=== PATIENT | male | born 1950 | race American Indian/Alaskan Native ===

== ENCOUNTER 2018-05-19 07:05 | Inpatient (IN) | payer MEDICARE ==
--- NOTE | 2018-05-14 15:05 | NUR ---
PATIENT HERE FOR PREADMISSION APPOINTMENT. HE IS SCHEDULED TO HAVE A LEFT TOTAL KNEE ARTHROPLASTY ON 05/19/18. HE HAS ATTENDED THE [facility] [employer] AND WOULD LIKE PHYSICAL THERAPY SET UP WITH [facility]. HIS DAUGHTER MAMI WILL BE HERE TO TRANSPORT HIM HOME WHEN HE IS DISCHARGED. HE HAS 6 STEPS INTO THE HOME AND NO STEPS INSIDE THE HOME. HE HAS A WALK IN SHOWER AND WILL LOOK INTO GETTING A SHOWER BENCH. HE HAS OBTAINED A WALKER AFTER ATTENDING THE [employer] CLASS. THIS INFORMATION WILL BE SENT TO DR WATSON AND CASE MANAGEMENT FOR FURTHER FOLLOW UP.
[~2018-05-19] VITALS: Ht 177.8 cm; Wt 69.0 kg
[~2018-05-19 07:05] MED LIST: ADVAIR 100-501 EACH INH; DEXAMETHASONE4 MG PO; HYDROCHLOROTHIA25 MG PO; OXYCODONE-ACET1 EAC1 PO; ULTRAM50 MG PO
[2018-05-19] MEDS ORDERED: ALEVE220 MG PO (07:25)
--- NOTE | 2018-05-19 07:38 | NUR ---
CHG NASAL SWAB AND ORAL RINSE COMPLETE.
--- NOTE | 2018-05-19 07:52 | NUR ---
PATIENT IS TAKEN BY WHEELCHAIR TO IMAGING FOR KNEE XRAYS BY ALLAN Walter. PATIENT RETURNS AND CALL LIGHT IS W/IN REACH. WARM BLANKETS GIVEN.
--- NOTE | 2018-05-19 12:28 | NUR ---
05/19/18 1228 Yary Hansen 1014- PT ARRIVES TO PACU NONAROUSABLE TO NOXIOUS STIMULI. PT HAS AN OPA IN PLACE AND IS ON 10L VIA MASK. RESP EVEN AND UNLABORED. OXYGEN SAT HIGH 90'S TO 100% ON THIS.
--- NOTE | 2018-05-19 13:15 | NUR ---
PT ARRIVED TO FLOOR FROM PACU VIA BED. PT SITTING UP AWAKE AND ALERT, ORIENTED TO ALL. PT DENIES PAIN OR NAUSEA. TAKING SIPS OF WATER, CLEAR LIQUID TRAY ORDERED. SPINAL AT T5. GOOD MOVEMENT OF LEFT LEG, RIGHT LEG STILL WITHOUT MOVEMENT. LEFT KNEE DRESSIN CDI. PT SATTING 93% ON 2LNC. IV FLUSHES EASILY, IFV INFUSING WNL. ICE TO LEFT KNEE. CALL LIGHT WITHIN REACH.
--- NOTE | 2018-05-19 14:15 | NUR ---
PT SITTING UP IN BED WATCHING TV. HAS TOLERATED CLEAR LIQUIDS AND MULTIPLE JELLOS, ASSISTED TO ORDER FOOD. PT DENIES PAIN OR NAUSEA. LEFT KNEE DRESSING CDI. REPORTS SENSATION DOWN TO TOES NOW, GOOD MOVEMENT OF BILATERAL LOWER EXTREMITIES. SCD'S ON. CALL LIGHT WITHIN REACH.
--- NOTE | 2018-05-19 14:53 | NUR ---
PATIENT IN BED EATING LUNCH. FRESH WATER GIVEN. CALL LIGHT IN REACH. NO FURTHER NEEDS AT THIS TIME.
--- NOTE | 2018-05-19 15:48 | NUR ---
PT DAOLFO MURPHY WITH P.T. WITH MARIANA HOLLINS.
--- NOTE | 2018-05-19 16:20 | NUR ---
PT MARIANA PO WELL. SL AT THIS TIME. SITTING UP IN BED EATING DINNER, MARIANA WELL. CALL LIGHT WITHIN REACH.
--- NOTE | 2018-05-19 17:53 | NUR ---
PATIENT IN BED WATCHING TV. FRESH WATER GIVEN. NO VOID, RN NOTIFIED. CALL LIGHT IN REACH. NO FURTHER NEEDS AT THIS TIME.
--- NOTE | 2018-05-19 18:02 | NUR ---
PT ATTEMPTED TO VOID, UNABLE AT THIS TIME. BLADDER SCANNED FOR 475ML. NOTIFIED DR. WATSON. RECIEVED ORDER TO PLACE DEY. PT STATES "I WANT TO TRY ONE MORE TIME BEFORE WE DO THAT."
--- NOTE | 2018-05-19 18:44 | NUR ---
MED REC COMPLETE
--- NOTE | 2018-05-19 19:04 | NUR ---
16 FR DEY CATH PLACED. 500ML OF CLEAR YELLOW URINE IMMEDIATE RETURN. PT MARIANA WELL. SITTING COMFORTABLY IN BED. DENIES PAIN OR OTHER CONCERNS. ICE TO LEFT KNEE. DRESSING CDI. CALL LIGHT WITHIN REACH.
--- NOTE | 2018-05-19 19:25 | NUR ---
SHIFT REPORT RECEIVED. PATIENT RESTING IN BED WATCHING TV. DENIES NEEDS AT THIS TIME. CALL LIGHT IN REACH.
--- NOTE | 2018-05-19 20:10 | NUR ---
SCHEDULED MEDS PROVIDED PER ORDERS. PATIENT HAS FAMILY IN ROOM VISITING. DENIES PAIN OR ANY NEEDS AT THIS TIME. CALL LIGHT IN REACH. FRESH WATER AT BEDSIDE.
--- NOTE | 2018-05-19 21:40 | NUR ---
PATIENT RESTING IN BED. DENIES PAIN. DRESSING C/D/I, CAST PADDING AND JACY WRAP IN PLACE. CMS INTACT, SPINAL APPEARS TO BE RESOLVING. PATIENT HAS DEY IN PLACE, URINE OUTPUT 100MLS FOR LAST 4 HOUR. IV FLUIDS RESTARTED AND ENCOURAGED PATIENT TO DRINK MORE FLUIDS. WILL CONTINUE TO MONITOR. ICE PACKS IN USE ON KNEE. PATIENT PROVIDED WITH A SNACK. NO OTHER NEEDS AT THIS TIME. CALL LIGHT IN REACH.
--- NOTE | 2018-05-19 23:00 | NUR ---
PATIENT RESTING IN BED WATCHING TV. DENIES PAIN. URINE OUTPUT APPEARS MINIMAL AT THIS TIME. IV FLUIDS PER ORDER. ENCOURAGED PATIENT TO TAKE ORAL FLUIDS WELL. PATIENT DENIES ANY NEEDS AT THIS TIME. CALL LIGHT IN REACH.
--- NOTE | 2018-05-20 01:30 | NUR ---
PATIENT APPEARED TO BE SLEEPING. WOKE EASILY TO VOICE. VS COMPLETED. URINE OUTPUT HAS IMPROVED WITH IV FLUIDS. ENCOURAGED PATIENT TO DRINK FLUIDS. PATIENT REPORTS PAIN 3/10. REQUEST PRN PAIN MEDS, DISCUSSED PAIN GOALS WITH PATIENT. HE STATES "I JUST DON'T WANT TO GET BEHIND". PRN OXY PROVIDED. PATIENT DENIES FURTHER NEEDS. DRESSING CDI. CMS INTACT. SPINAL RESOLVED.
--- NOTE | 2018-05-20 03:50 | NUR ---
PATIENT APPEARS TO BE SLEEPING SOUNDLY, RR 18. CALL LIGHT IN REACH.
--- NOTE | 2018-05-20 06:18 | NUR ---
PATIENT'S URINE OUTPUT QS. STARTING TO DRINK MORE FLUIDS NOW THAT AWAKE. IV FLUIDS CONTINUE PER ORDER. DISCUSSED IMPORTANCE OF ADEQUATE INTAKE. TIBURCIO DC PER ORDER, PATIENT TOLERATED WELL. FRESH ICE WATER AND COFFEE PROVIDED. PATIENT DENIES PAIN, STATES "I'M A LITTLE SORE FROM THE EXERCISES". FRESH ICE PACKS APPLIED. NO DRAINAGED NOTED ON CAST PADDING UNDER JACY WRAP. [facility] INATCT.
--- NOTE | 2018-05-20 06:24 | NUR ---
PATIENT HAD GOOD PAIN CONTROL. PRN OXY X1. URINE OUTPUT MINIMAL AT START OF SHIFT, IV FLUIDS HAD BEEN STOPPED. RESTARTED IV FLUIDS PER EMAR AROUND 2200. PATIENT TOLERATING REGULAR DIET, ENCOURAGED INTAKE. OUTPUT IMPROVED THIS AM, TIBURCIO DC @ 0600. DRESSING ON L KNEE HAS NO DRAINAGE VISABLE ON CAST PADDING. ICE APPLIED TO KNEE. 1PA W/FWW.
--- NOTE | 2018-05-20 10:44 | NUR ---
PT UP AMBULATING IN HALLS WITH THIS RN VERY STEADY GAIT.
--- NOTE | 2018-05-20 11:15 | OR ---
[facility] [address], [place] [address] Signed DATE OF OPERATION: 05/19/2018 SURGEON: Joaquin Aguilera MD PREOPERATIVE DIAGNOSIS: End-stage posttraumatic arthritis, left knee with varus collapse. POSTOPERATIVE DIAGNOSIS: End-stage posttraumatic arthritis, left knee with varus collapse. PROCEDURE: Total knee arthroplasty, left. IMPLANTS: We used a size #7 PS Attune femur. We used a size #7 tibial tray, but because of his medial bony defect, it was assembled with a 16 mm stem and a 29 mm metaphyseal sleeve. We then inserted the 7 mm PS rotating platform poly and a 38 mm all-poly patella. ANESTHESIA: Spinal with sedation. SPECIMENS AND COMPLICATIONS: There were no specimens or complications. TOURNIQUET TIME: 90 minutes. WHAT WAS DONE: The patient was taken to the operating room, placed on table in a supine position. After anesthesia was induced and the patient sedated, left leg was exsanguinated with elevation. Pneumatic tourniquet was inflated to 300 mmHg pressure. A straight anterior approach was made to the knee through skin and subcutaneous tissue. A small medial flap was created and an anteromedial arthrotomy was performed. The patella was everted and about 10 mm were trimmed off the posterior aspect of the patella and drill holes were made for the 38 mm all-poly patellar button. It was then trialled and we had reconstituted the 25 mm height of the patella per the preresection. We then placed the patella in the lateral recess and gently flexed the knee. Using the [employer] navigation system, we digitized the distal aspect of the femur and then resected the distal femur in neutral varus valgus in a 3 degrees of flexion and removing about 10 mm off the distal femur. We then transitioned the navigation system to the proximal tibia and Electronically Signed By: JOAQUIN AGUILERA MD 05/20/18 1115 PATIENT NAME: FE SRIVASTAVA OPERATIVE REPORT DATE OF : 52 REPORT #: [id number] PHYSICIAN: JOAQUIN AGUILERA MD PCP: FERN COBB MD REPORT IS CONFIDENTIAL AND NOT TO BE RELEASED WITHOUT AUTHORIZATION [facility] [address], [place] [address] Signed digitized the proximal tibia. We then resected the proximal tibia in neutral varus valgus, 3 degrees of posterior slope per the Attune protocol and removing about 7 mm off the lateral side. This left a moderate sized to medial defect. We then placed the 4-in-1 cutting block on the distal femur and made the anterior, posterior, and chamfer cuts. The notch cutting block was then placed and the notch was cut out. A lamina menu planner was placed in the knee joint and we removed the remnants of the medial lateral meniscus, ACL, and PCL. We then placed the tibial via the femoral trial on the distal femur and drilled the lug holes. We then placed the size #7 tibial tray on the proximal tibia. We had good coverage with no overhang. We then trialled the knee with a 5 mm poly and we were happy with full extension and varus valgus stability and flexion and extension in the mid range. We then removed the trials. The tibia was subluxed anteriorly and was prepared by placing the tibial plate on the tibia optimizing the coverage and then hand reaming up to 16 mm. We then assembled the broach and reamed for a 29 mm metaphyseal sleeve. We then impacted the trial and gently countersunk in a 1 mm or 2. We then recut the tibia, so it would be flushed with the top of the metaphyseal sleeve. We then put the tibial tray on the sleeve and stem, put the distal femoral component on the distal femur and then retrial and we were pretty happy with a 5 mm poly. The knee was ranged and seemed to be adequately stable. We then removed all of the trials and copiously irrigated the knee. The tibial femoral and patellar components were cemented into place and as we did so, we used a 5 mm insert. After the cement had cured, marginal cementophytes were sought and removed. We then recycled the knee a number of times. We appeared to have just a little bit of lateral instability compared to the medial side. We therefore removed the trial poly and placed a lamina menu planner in the knee and just gently pie crusted the MCL. We then found we could actually place a 7 mm poly without sacrificing any extension and with having excellent varus valgus stability and flexion and extension in the mid range. We therefore gently sublux the tibia forward. Put the rotating platform size #7, [address] and relocated the knee. The knee was again copiously irrigated and closed in a standard fashion. Sterile dressings were applied and the patient was awakened and taken to the recovery room, where he arrived in a stable condition. Counts were correct and antibiotic protocols were followed. MD DEAN Potts/ELIAZARL /[id number] Electronically Signed By: JOAQUIN AGUILERA MD 05/20/18 1115 PATIENT NAME: FE SRIVASTAVA OPERATIVE REPORT DATE OF : 52 REPORT #: [id number] PHYSICIAN: JOAQUIN AGUILERA MD PCP: FERN COBB MD REPORT IS CONFIDENTIAL AND NOT TO BE RELEASED WITHOUT AUTHORIZATION [address] [place], [place] [address] Signed Copies: ~ Electronically Signed By: JOAQUIN AGUILERA MD 05/20/18 1115 PATIENT NAME: FE SRIVASTAVA OPERATIVE REPORT DATE OF : 52 REPORT #: [id number] PHYSICIAN: JOAQUIN AGUILERA MD PCP: FERN COBB MD REPORT IS CONFIDENTIAL AND NOT TO BE RELEASED WITHOUT AUTHORIZATION
--- NOTE | 2018-05-20 13:00 | NUR ---
DR WATSON IN TO SEE PT. ORDERS NOTED FOR DC.
--- NOTE | 2018-05-20 13:12 | NUR ---
FAXED CHART NOTES TO [facility] OP PT INCLUDING FACE SHEET, ORDER FOR PT, OP NOTE, H AND P, CONSULT, PT EVAL AND NOTE. RECIEVED FAX CONFIRMATION.
[2018-05-20] MEDS ORDERED: OXYCODONE HCL10 MG PO (13:39)
[2018-05-20] MEDS ORDERED: XARELTO10 MG PO (13:40)
[2018-05-20] MEDS ORDERED: ULTRAM50 MG PO (13:40)
--- NOTE | 2018-05-20 14:07 | NUR ---
CALLED OFFICE TO CONFIRM PT CHRONIC MEDICATIONS TO CONTINUE OR NOT. NURSE ANTONELLA CALLED BACK TO NOTIFY THAT WANTS TO HAVE HCTZ TO CONTINUE AND TO STOP THE NAPROXEN.
--- NOTE | 2018-05-20 14:15 | NUR ---
PT VERY ALERT, ORIENTED AND OCCORDING TO PT READY TO WALK. WENT IN AT PT'S REQUEST AND HAD AN ENGAGING VISIT. REHAB MANAGER IN TO DO VS, EXTENDED A BLESSING, WILL FOLLOW NEEDED
--- NOTE | 2018-05-20 15:15 | NUR ---
REVIEWED DISCHARGE ORDERS AND FOLLOWUP APPOINTMENT, VERBALIZES UNDERSTANDING AND S/SX TO REPORT. DRSG REMOVED FROM L KNEE PER MD ORDERS. SCANT AMOUNT OF RED SERROUS FLUID ON DERMABOND. INCISION IS WELL APPORXIMATED. WAITING FOR FAMILY TO ARRIVE.
== END 2018-05-20 15:20 | disposition home or self-care (01) | DRG 469 ==
LOC: OPS 07:05 → DS 07:05 → OPS 07:18 → MS 07:18 → EDSTATUS 08:45 → OPS 08:45 → DS 12:49 → MS 12:49 → OPS 05-20 15:20 → MS 05-20 15:20
PROVIDERS: ADMIT Orthopaedic Surgery
PROC: 0SRD0J9 Replacement of Left Knee Joint with Synthetic Substitute, Cemented, Open Approach (ICD-10-PCS; principal; 2018-05-19 08:45)
DX: M17.32 Unilateral post-traumatic osteoarthritis, left knee (principal); K85.90 Acute pancreatitis without necrosis or infection, unspecified; I10 Essential (primary) hypertension
CPT/HCPCS: 01402; 36415; 73560; 80048; 85025; 97110; 97116; 97161; C1713; C1776; J0690; J1100; J1885; J2250; J2274; J2405; J2704; J2765; J3010; J7120

== ENCOUNTER 2022-12-03 12:17 | Emergency (ER) | payer MEDICARE ==
[~2022-12-03] VITALS: Ht 177.8 cm; Wt 60.1 kg
--- NOTE | ~2022-12-03 | EKG ---
[facility] [address] [facility] [place], [place] [address] Draft EK completed, results pending confirmation PATIENT NAME: ERWIN SRIVASTAVAJODI RIDER Electrocardiogram DATE OF : 52 PHYSICIAN: PRELIMINARY REPORT #: [id number] REPORT IS CONFIDENTIAL AND NOT TO BE RELEASED WITHOUT AUTHORIZATION
[~2022-12-03 12:17] MED LIST changes: +ALEVE220 MG PO; +OXYCODONE HCL10 MG PO; +XARELTO10 MG PO
--- OUTSIDE RECORDS SUMMARY | 2022-12-03 12:24 | XMS ---
PreManage Notification: FE SRIVASTAVA Security [employer] Tender Events No recent Security Events currently on file CRITERIA MET - [facility] - 2 Visits in 30 Days CARE PROVIDERS There are no care providers on record at this time. Cong has no Care Guidelines for this patient. Rogelio VISIT COUNT (12 MO.) 1 [facility] TOTAL 2 NOTE: Visits indicate total known visits. ED/C VISIT TRACKING (12 MO.) 12/03/2022 12:18 [facility] [place] TYPE: Emergency COMPLAINT: - CHEST PAIN 11/25/2022 11:[address] [facility] TYPE: Emergency COMPLAINT: - GI Issue DIAGNOSES: - Constipation, unspecified - Constipation - GI Issue INPATIENT VISIT TRACKING (12 MO.) No inpatient visits to display in this time frame [email or web address]
[2022-12-03 12:36] LABS: BASOPHILS 0.4 % (0-2); EOSINOPHILS 0.2 % (0-6); HEMATOCRIT 31.9 % (35.0-50.0); HEMOGLOBIN 10.2 g/dL (12.0-18.0); LYMPHOCYTES 13.6 % (24-44); MCH 29.1 (27-36); MCHC 32.1 g/dl (30-36); MCV 90.6 fl (81-99); MONOCYTES 8.1 % (0-12); NEUTROPHILS 77.7 % (39-80); PLATELET COUNT 883 K/uL (140-440); RBC 3.52 M/ul (4.3-5.7); RDW 15.1 (10.5-15.0)
[2022-12-03 13:06] LABS: ALBUMIN 1.9 g/dL (3.4-5.0); ALBUMIN/GLOBULIN RATIO 0.38 (1.1-2.4); ANION GAP 14.2 (7-21); BILIRUBIN, TOTAL 0.4 ng/dL (0.2-1.0); BUN/CREATININE RATIO 14.92 (6.0-28.6); CALCIUM 8.7 mg/dL (8.5-10.1); CREATININE, SERUM 0.67 mg/dL (0.70-1.30); POTASSIUM 4.2 mmol/L (3.5-5.1); PROTEIN, TOTAL 6.9 g/dL (6.4-8.2)
[2022-12-03 15:20] LABS: INFLUENZA B NAA NEGATIVE (NEGATIVE); RESPIRATORY SYNCYTIAL VIR NAA NEGATIVE (NEGATIVE)
[2022-12-03 20:43] VITALS: BP 117/66
== END 2022-12-03 20:18 | disposition short-term general hospital (02) ==
LOC: ED 12:17
PROVIDERS: Emergency Medicine
DX: J85.2 Abscess of lung without pneumonia (principal); J44.9 Chronic obstructive pulmonary disease, unspecified; Z87.891 Personal history of nicotine dependence; Z20.822 Contact with and (suspected) exposure to COVID-19
CPT/HCPCS: 36415; 71045; 71260; 80053; 84484; 85025; 87502; 93005; 93010; J2543; J3370; J7060; Q9967; U0002